=== PATIENT | male | born 1995 | race Caucasian/White ===

== ENCOUNTER 2022-01-01 22:04 | Emergency (ER) | payer SELFPAY ==
[2022-01-01] MEDS ORDERED: Ketorolac 30 MG/ML SDV IM ONE (22:23)
== END 2022-01-01 23:25 | disposition home or self-care (01) ==
LOC: MW.ED 22:04
DX: R07.9 Chest pain, unspecified (principal); I10 Essential (primary) hypertension; Z88.0 Allergy status to penicillin
CPT/HCPCS: 71045; 93005; 96372; 99285; J1885

== ENCOUNTER 2022-01-03 13:21 | Emergency (ER) | payer SELFPAY ==
[2022-01-03 15:58] LABS: CORONAVIRUS COVID-19 NAA NEGATIVE (NEGATIVE); INFLUENZA A NAA NEGATIVE (NEGATIVE); INFLUENZA B NAA NEGATIVE (NEGATIVE)
[2022-01-03 16:12] LABS: BLOOD UREA NITROGEN,BUN 12 mg/dL (7.0-18.0); CARBON DIOXIDE,CO2 30.4 mmol/L (21.0-32.0); CHLORIDE,CL 105 mmol/L (98-107); GLUCOSE RANDOM 96 mg/dL (74-106); POTASSIUM,K 4.4 mmol/L (3.5-5.1); SODIUM,NA 142 mmol/L (136-148)
[2022-01-03] MEDS: Alum Hydro/Mag Hydro/Simeth XS 15 ML, Lidocaine 2% 5 ML PO ONE ×2 (16:44)
== END 2022-01-03 17:01 | disposition home or self-care (01) ==
LOC: MW.ED 13:21
DX: R07.2 Precordial pain (principal); Z88.0 Allergy status to penicillin; Z79.899 Other long term (current) drug therapy; Z20.822 Contact with and (suspected) exposure to COVID-19
CPT/HCPCS: 0240U; 36415; 80053; 84484; 85025; 85379; 93005; 99285; A9270